=== PATIENT | female | born 1945 | race Caucasian/White ===

== ENCOUNTER 2020-11-04 16:10 | Outpatient (REF) | payer MEDICARE, SELFPAY | END 2020-11-04 16:11 | disposition home or self-care (01) | LOC: HO.LAB 16:10 | PROVIDERS: Visit Provider Nurse Practitioner Family | DX: Z20.822 Contact with and (suspected) exposure to COVID-19 (principal); J04.0 Acute laryngitis | CPT/HCPCS: U0003; U0005 ==